=== PATIENT | male | born 1940 | race Caucasian/White ===

== ENCOUNTER → 2016-12-06 | Outpatient (CLI) | payer MEDICARE ==
[~2016-12-06] MED LIST: ALTACE PO; AMLODIPINE BESYL5 MG PO; ASPIRINEC PO; CALCIUM 500 + D1 TAB PO; CARAFATE PO; CERTAGEN PO; FAMOTIDINE PO; FISH OIL 1,0001 CAP; GLUCOSAMINE CHON PO; HYDROCHLOROTH12.5 M1 PO; LEVAQUIN PO; LORTAB 7.5-5001 TAB PO; MONTELUKAST SOD10 MG PO; NEXIUM PO; PRAVACHOL PO; PREVACID15 MG PO; PROTONIX PO; TUSSIONEX PENN473 ML PO; VIT E; VITAMIN C; ZEGERID40 MG/PKT PO; ZYLOPRIM PO; ZYRTEC10 M2 PO
--- NOTE | ~2016-12-06 | BD1 ---
[facility] A Service of [facility] & [facility] RADIOLOGY TEXT RESULTS PATIENT: EVONNE JEREZ LOCATION: [facility] : 40 UNIT #: [id number] AGE: [address]: Leydi Booth MD SEX: M ORDER DR: [id number] [address] [id number] [id number] MR#: [id number] Acc #: [id number] NAME: EVONNE JEREZ : 1940 SEX: M STUDY DATE/TIME: 12/06/2016 8:03 UNIT: [facility] ROOM: STUDY DESCRIPTION: Dexa Bone Dens 1+ Site Attending Physician: Leydi Booth M.D. Referring Physician: Leydi Booth M.D. Ordering Physician: Leydi Booth M.D. Primary Care Physician: Leydi Booth M.D. MEDICAL IMAGING REPORT This report is preliminary unless electronic signature is present. EXAM Bone density spine/hip, 12/06/2016. HISTORY Senile osteoporosis. Smoker 20 years. FINDINGS Bone density scanning performed upper four lumbar vertebral segments and both proximal femurs in [age]-year-old, 89-poung male. No comparisons. L1-L4: Bone mineral density 1.315 g/cm2 for a T-score of 0.8 standard deviations above the mean for a reference population of normal young individuals and Z-score 1.4 standard deviations above the mean for age-matched population. In the proximal left femur, the total bone mineral density is 1.008 g/cm2 for a T-score 0.6 standard deviations below mean for a reference population of normal young individuals and Z-score 0.3 standard deviations above the mean for age-matched population. In the left femoral neck, bone mineral density is 0.887 g/cm2 for a T-score of 1.4 standard deviations below mean for a reference population of normal young individuals and Z-score 0 standard deviations from the mean for age-matched population. In the proximal right femur, the total bone mineral density is 1.026 g/cm2 for a T-score 0.2 standard deviations below mean for a reference population of normal young individuals and a Z-score 0.4 standard deviations above the mean for age-matched population. In the right femoral neck, the bone mineral density is 0.919 g/cm2 for a T-score of 1.2 standard deviations below mean for a reference population of normal young individuals and Z-score 0.2 standard deviations above the mean for an age-matched population. 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 Patient felt to be at increased risk for fracture. Treatment options may be considered. Continued surveillance is recommended. Dictated by... Al Hinkle M.D. THIS IS AN ELECTRONICALLY VERIFIED REPORT Al Hinkle M.D. at 12/07/2016 9:09 AM JUAN J/justin TD: 12/06/2016 10:24 JOB #: [id number] MEDICAL IMAGING REPORT Page 1 of 1
== END | disposition home or self-care (01) ==
LOC: SRAD 07:50
DX: M81.0 Age-related osteoporosis without current pathological fracture (principal); M85.852 Other specified disorders of bone density and structure, left thigh
CPT/HCPCS: 77080